=== PATIENT | female | born 1960 | race Caucasian/White ===

== ENCOUNTER 2017-01-12 09:19 | Inpatient (IN) | payer OTHER ==
[~2017-01-12] VITALS: Ht 162.6 cm; Wt 66.2 kg
[2017-01-12] MEDS ORDERED: SITA50TA3 PO (09:28)
[2017-01-12] MEDS ORDERED: METF500T4 PO (09:28)
[2017-01-12 09:58] LABS: HEMATOCRIT. 36.5 % (36.0-48.0); HEMOGLOBIN. 12.1 g/dL (12.0-16.0); LYMPHOCYTES % 15.1 % (20.0-50.0); MEAN CORPUSCULAR HEMOGLOBIN 26.3 pg (28.0-32.0); MEAN CORPUSCULAR VOLUME 79.4 fL (81.0-99.0); MEAN PLATELET VOLUME 8.8 fl (7.4-10.4); MONOCYTES % 5.7 % (2.0-8.0); NEUTROPHILS % 75.2 % (40.0-76.0); PLATELET 302 x1000/uL (130-400); RED BLOOD CELL COUNT 4.59 mill/uL (4.2-5.4); RED CELL DISTRIBUTION WIDTH 14.5 % (11.6-14.6)
[2017-01-12 10:05] LABS: PROTHROMBIN TIME 10.3 sec
[2017-01-12 10:12] LABS: CARBON DIOXIDE 26 mEq/L (21-32); CHLORIDE 104 mEq/L (98-107)
[2017-01-12 10:15] LABS: TROPONIN I < 0.02 ng/mL (0.00-0.04)
[2017-01-12] MEDS ORDERED: MORPHINE SULFATE 4 MG/ML CPJ (NOT FOR IM USE) IV ONE (11:15)
[2017-01-12] MEDS ORDERED: ONDANSETRON HCL 4MG/2ML VIAL IV ONE (11:15)
[2017-01-12] MEDS ORDERED: CLONIDINE 0.1MG TABLET PO PRN (11:30)
[2017-01-12] MEDS ORDERED: LORAZEPAM 2MG/ML CPJ IV PRN (11:30)
[2017-01-12] MEDS ORDERED: DOCUSATE SODIUM 100MG CAPSULE PO PRN (11:30)
[2017-01-12] MEDS ORDERED: IPRATROPIUM/ALBUTEROL 0.5-3(2.5)MG/3ML NEB INH PRN (11:30)
[2017-01-12] MEDS ORDERED: MAGNESIUM/ALUMINUM HYDROXIDE/SIMETHICONE 30ML UDC PO PRN (11:30)
[2017-01-12] MEDS ORDERED: ONDANSETRON HCL 4MG/2ML VIAL IV PRN (11:30)
[2017-01-12] MEDS ORDERED: GUAIFENESIN 200MG/10ML SUGAR FREE UDC PO PRN (11:30)
[2017-01-12] MEDS ORDERED: ACETAMINOPHEN 325MG TABLET PO PRN (11:30)
[2017-01-12] MEDS ORDERED: NA PHOS,M-B/NA PHOS,DI-BA ENEMA 118ML PR PRN (11:30)
[2017-01-12] MEDS ORDERED: DIPHENHYDRAMINE 50MG/ML VIAL IV PRN (11:30)
[2017-01-12 12:00] VITALS: BP 131/86
[2017-01-12] MEDS ORDERED: DEXTROSE 50% WATER 50ML SYRINGE IV PRN (12:15)
[2017-01-12 12:40] VITALS: BP 138/87
[2017-01-12] MEDS: BLOOD SUGAR DIAGNOSTIC STRIP TEST SCH ×3 (12:46→23:40)
[2017-01-12] MEDS: INSULIN LISPRO 100 UNITS/ML SUBCUT SCH ×3 (12:49→21:06)
[2017-01-12] MEDS ORDERED: HYDROMORPHONE HCL/PF 2MG/ML CPJ IV PRN (14:00)
[2017-01-12] MEDS ORDERED: ENOXAPARIN 40MG/0.4ML SYR SUBCUT SCH (14:00)
[2017-01-12] MEDS ORDERED: SITA100T6 PO (14:07)
[2017-01-12] MEDS ORDERED: ATOR10TA69 PO (14:07)
[2017-01-12] MEDS ORDERED: AMLO1CAP6 PO (14:07)
[2017-01-12] MEDS ORDERED: METF10002 PO (14:07)
[2017-01-12] MEDS: LEVOFLOXACIN 500MG PREMIX 100 ML IV SCH (14:15)
[2017-01-12 17:41] LABS: HEPATITIS B SURFACE ANTIGEN NEGATIVE
[2017-01-12 18:10] LABS: HEPATITIS B CORE AB IGM NEGATIVE
[2017-01-12] MEDS: HYDROCODONE/ACETAMINOPHEN 5/325MG TABLET PO PRN (19:08)
[2017-01-12 20:00] VITALS: BP 111/85
[2017-01-12 20:01] LABS: HEPATITIS A AB IGM NEGATIVE (NEGATIVE)
[2017-01-12] MEDS: ATORVASTATIN CALCIUM 10MG TABLET PO SCH (20:42)
[2017-01-13] VITALS: BP 106/66
[2017-01-13 04:00] VITALS: BP 121/86
[2017-01-13 06:17] LABS: EOSINOPHILS % 3.7 % (0.0-5.0); HEMATOCRIT. 35.7 % (36.0-48.0); HEMOGLOBIN. 11.8 g/dL (12.0-16.0); LYMPHOCYTES % 20.5 % (20.0-50.0); MEAN CORPUSCULAR HEMOGLOBIN 26.3 pg (28.0-32.0); MEAN CORPUSCULAR VOLUME 79.5 fL (81.0-99.0); MONOCYTES % 8.1 % (2.0-8.0); NEUTROPHILS % 66.7 % (40.0-76.0); PLATELET 294 x1000/uL (130-400); RED CELL DISTRIBUTION WIDTH 14.3 % (11.6-14.6)
[2017-01-13 06:36] LABS: CARBON DIOXIDE 27 mEq/L (21-32); CHLORIDE 105 mEq/L (98-107); HDL CHOLESTEROL 47 mg/dL (40-59); LDL CHOLESTEROL 105 mg/dL (5-100); T4 FREE 1.13 ng/dL (0.76-1.46)
[2017-01-13] MEDS: BLOOD SUGAR DIAGNOSTIC STRIP TEST SCH ×4 (06:37→21:17)
[2017-01-13 08:00] VITALS: BP 118/68
[2017-01-13] MEDS: INSULIN LISPRO 100 UNITS/ML SUBCUT SCH ×4 (08:10→21:00)
[2017-01-13] MEDS: METFORMIN HCL 500MG TABLET PO SCH (08:10)
[2017-01-13] MEDS: BENAZEPRIL 20MG TABLET PO SCH (08:32)
[2017-01-13] MEDS: AMLODIPINE 5MG TABLET PO SCH (08:33)
[2017-01-13] MEDS: LINAGLIPTIN 5MG TABLET PO SCH (08:33)
[2017-01-13] MEDS ORDERED: MEDICATION NOT ON FORMULARY EA (Sitagliptin Phosphate (Januvia) 100 MG) PO SCH (09:00)
[2017-01-13] MEDS: FUROSEMIDE 40MG/4ML VIAL IV SCH (09:00)
[2017-01-13 12:00] VITALS: BP 117/79
[2017-01-13] MEDS ORDERED: SODIUM BICARBONATE 4% (2.4MEQ) 5ML VIAL IV ONE (13:01)
[2017-01-13] MEDS: HYDROCODONE/ACETAMINOPHEN 5/325MG TABLET PO PRN ×2 (13:12→22:24)
[2017-01-13] MEDS: LEVOFLOXACIN 500MG PREMIX 100 ML IV SCH (14:53)
[2017-01-13 16:00] VITALS: BP 111/74
[2017-01-13 20:00] VITALS: BP 114/77
[2017-01-13] MEDS: ATORVASTATIN CALCIUM 10MG TABLET PO SCH (21:14)
[2017-01-14] VITALS: BP 111/62
[2017-01-14 04:00] VITALS: BP 104/60
[2017-01-14] MEDS: BLOOD SUGAR DIAGNOSTIC STRIP TEST SCH ×2 (05:54→13:18)
[2017-01-14 08:00] VITALS: BP 112/75
[2017-01-14] MEDS: AMLODIPINE 5MG TABLET PO SCH (08:45)
[2017-01-14] MEDS: METFORMIN HCL 500MG TABLET PO SCH (08:45)
[2017-01-14] MEDS: LINAGLIPTIN 5MG TABLET PO SCH (08:45)
[2017-01-14] MEDS: BENAZEPRIL 20MG TABLET PO SCH (08:45)
[2017-01-14] MEDS: INSULIN LISPRO 100 UNITS/ML SUBCUT SCH ×2 (08:48→13:10)
[2017-01-14] MEDS: FUROSEMIDE 40MG/4ML VIAL IV SCH (08:52)
[2017-01-14 10:13] VITALS: BP 112/75
[2017-01-14 10:35] VITALS: BP 111/79
[2017-01-14] MEDS: HYDROCODONE/ACETAMINOPHEN 5/325MG TABLET PO PRN (10:40)
[2017-01-14 12:00] VITALS: BP 112/75
[2017-01-14] MEDS ORDERED: LEVOFLOXACIN 500MG PREMIX 100 ML IV SCH (16:00)
[2017-01-14] MEDS ORDERED: LEVOFLOXACIN 500MG TABLET PO SCH (16:00)
== END 2017-01-14 13:40 | disposition home or self-care (01) | DRG 186 ==
LOC: ER 09:50 → 7WST 10:19 → EDBEDREQSVC 10:26 → EDBEDREQ 10:26 → ENRESERV 11:34
PROVIDERS: ADMIT Internal Medicine; ATTEND Internal Medicine
PROC: 0W993ZZ Drainage of Right Pleural Cavity, Percutaneous Approach (ICD-10-PCS; principal; 2017-01-13)
DX: J90 Pleural effusion, not elsewhere classified (principal); J96.00 Acute respiratory failure, unspecified whether with hypoxia or hypercapnia; E11.9 Type 2 diabetes mellitus without complications; I10 Essential (primary) hypertension; E78.5 Hyperlipidemia, unspecified; J45.909 Unspecified asthma, uncomplicated; Z88.0 Allergy status to penicillin; Z87.01 Personal history of pneumonia (recurrent)
CPT/HCPCS: 32555; 36415; 71010; 71250; 76700; 80053; 80061; 82040; 82945; 82962; 83615; 83880; 84157; 84439; 84443; 84484; 85025; 85379; 85610; 85730; 86705; 86709; 86803; 87070; 87205; 87340; 88108; 88312; 89050; 93005; 93306; 96374; 96375; 99285; J1650; J1815; J1956; J2270; J2405; J3490; J7040

== ENCOUNTER 2022-01-29 03:12 | Inpatient (IN) | payer MEDICARE, OTHER ==
[2022-01-29] VITALS (11 sets, daily range): BP systolic 86–157; BP diastolic 36–96
[~2022-01-29] VITALS: Ht 160 cm; Wt 70.8 kg
[~2022-01-29 03:12] MED LIST: AMLO1CAP6 PO; ATOR10TA69 PO; METF-416 PO; SITA100T11 PO
[2022-01-29] MEDS ORDERED: ASPIRIN 81MG TABLET PO ONE (03:30)
[2022-01-29 03:51] LABS: BASOPHILS % 0.4 % (0.0-2.0); EOSINOPHILS % 0.6 % (0.0-5.0); HEMATOCRIT. 28.2 % (36.0-48.0); HEMOGLOBIN. 9.1 g/dL (12.0-16.0); LYMPHOCYTES % 16.6 % (20.0-50.0); MEAN CORPUSCULAR HEMOGLOBIN 30.4 pg (28.0-32.0); MEAN CORPUSCULAR VOLUME 94.3 fL (81.0-99.0); MEAN PLATELET VOLUME 8.2 fl (7.4-10.4); MONOCYTES % 3.1 % (2.0-8.0); NEUTROPHILS % 79.3 % (40.0-76.0); PLATELET 167 x1000/uL (130-400); RED BLOOD CELL COUNT 2.99 mill/uL (4.2-5.4); RED CELL DISTRIBUTION WIDTH 18.2 % (11.6-14.6)
[2022-01-29 03:58] LABS: CHLORIDE 105 mEq/L (98-107)
[2022-01-29] MEDS ORDERED: CEFTRIAXONE 1 G PREMIX 50 ML IV NR (04:15)
[2022-01-29] MEDS ORDERED: SODIUM CHLORIDE 0.9% 1000ML BAG (SEPSIS BOLUS) IV ONE (04:15)
[2022-01-29] MEDS ORDERED: PNEUMOCOCCAL 23-VAL P-SAC VAC 0.5 ML IM ONE (04:30)
[2022-01-29] MEDS ORDERED: ENOXAPARIN 80MG/0.8ML SYR SUBCUT NR (04:30)
[2022-01-29] MEDS ORDERED: AZITHROMYCIN 500 MG in DEXT 5% WATER 250 ML IV NR (06:00)
[2022-01-29] MEDS ORDERED: ZOLPIDEM TARTRATE 5MG TABLET PO PRN (07:15)
[2022-01-29] MEDS ORDERED: DEXTROSE 50% WATER 50ML SYRINGE IV PRN (07:15)
[2022-01-29] MEDS ORDERED: ONDANSETRON HCL 4MG/2ML INJ IV PRN (07:15)
[2022-01-29] MEDS ORDERED: GUAIFENESIN 200MG/10ML SUGAR FREE UDC PO PRN (07:15)
[2022-01-29] MEDS ORDERED: TRAMADOL 50MG TABLET PO PRN ×2 (07:15→22:00)
[2022-01-29] MEDS ORDERED: NA PHOS,M-B/NA PHOS,DI-BA ENEMA 118ML PR PRN (07:15)
[2022-01-29] MEDS ORDERED: DOCUSATE SODIUM 100MG CAPSULE PO PRN (07:15)
[2022-01-29] MEDS ORDERED: KETOROLAC 15MG/ML VIAL IV PRN (07:15)
[2022-01-29] MEDS ORDERED: ACETAMINOPHEN 325MG TABLET PO PRN ×2 (07:15)
[2022-01-29] MEDS ORDERED: CLONIDINE 0.1MG TABLET PO PRN (07:15)
[2022-01-29] MEDS ORDERED: IPRATROPIUM/ALBUTEROL 0.5-3(2.5)MG/3ML NEB NEB PRN (07:15)
[2022-01-29] MEDS ORDERED: MAGNESIUM/ALUMINUM HYDROXIDE/SIMETHICONE 30ML UDC PO PRN (07:15)
[2022-01-29 07:58] LABS: *AMPHETAMINES SCREEN URINE NEGATIVE (NEGATIVE); *BARBITURATES SCREEN URINE NEGATIVE (NEGATIVE); *BENZODIAZEPINES SCREEN URINE NEGATIVE (NEGATIVE); *COCAINE SCREEN URINE NEGATIVE (NEGATIVE); CANNABINOID URINE SCREEN NEGATIVE (NEGATIVE); METHADONE URINE SCREEN NEGATIVE (NEGATIVE); OPIATES URINE SCREEN NEGATIVE (NEGATIVE); PHENCYCLIDINE URINE SCREEN NEGATIVE (NEGATIVE)
[2022-01-29 08:04] LABS: BG BASE EXCESS -5.5 mmol/L (-2.0-2.0); BG CARBOXYHEMOGLOBIN 0.3 % (0.5-1.5); BG DEOXYHEMOGLOBIN 1.9 % (0.0-5.0); BG FRACTION INSPIRED OXYGEN 80; BG HCO3 ACT 17.6 mmol/L (22.0-26.0); BG METHEMOGLOBIN 0.3 % (0.0-1.5); BG OXYGEN SATURATION 98.1 % (92.0-98.5); BG OXYHEMOGLOBIN 97.5 % (94.0-97.0); BG PCO2 25.9 mmHg (35.0-45.0); BG PO2 140.7 mmHg (75.0-100.0); BG SAMPLE SITE RIGHT RADIAL; BG TOTAL HEMOGLOBIN 8.5 g/dL (12.0-18.0); BG VENT MODE MASK - BIPAP
[2022-01-29 08:23] LABS: FOLIC ACID (FOLATE) SERUM >20 ng/mL ng/mL (>5.38); VITAMIN B12 SERUM >2000 pg/mL pg/mL (211-911)
[2022-01-29] MEDS ORDERED: VANCOMYCIN 1.25GM PMX (XELLIA) 250 ML IV SCH (09:00)
[2022-01-29] MEDS ORDERED: ENOXAPARIN 40MG/0.4ML SYR SUBCUT SCH (09:00)
[2022-01-29] MEDS: INSULIN LISPRO 100 UNITS/ML SUBCUT SCH ×4 (09:42→22:09)
[2022-01-29] MEDS: SODIUM CHLORIDE 0.9% 1,000 ML IV SCH ×2 (09:47→17:28)
[2022-01-29] MEDS: ZINC SULFATE 220 MG ( 50 ) CAPSULE PO SCH (09:48)
[2022-01-29] MEDS: ASCORBIC ACID 500 MG TABLET PO SCH ×2 (09:48→21:00)
[2022-01-29] MEDS: FAMOTIDINE 20MG TABLET PO SCH ×2 (09:48→21:00)
[2022-01-29] MEDS: CHOLECALCIFEROL (D3) 1000 UNIT TABLET PO SCH (09:48)
[2022-01-29] MEDS: GUAIFENESIN/DM 600MG/30MG ER TAB 12HR PO SCH ×2 (09:49→19:15)
[2022-01-29] MEDS: BLOOD SUGAR DIAGNOSTIC STRIP TEST SCH ×4 (09:49→21:53)
[2022-01-29] MEDS ORDERED: SODIUM BICARBONATE 8.4% 1 MEQ/ML 50ML SYR IV NR (11:00)
[2022-01-29 11:07] LABS: BG BASE EXCESS -9.7 mmol/L (-2.0-2.0); BG CARBOXYHEMOGLOBIN 0.3 % (0.5-1.5); BG DEOXYHEMOGLOBIN 2.1 % (0.0-5.0); BG FRACTION INSPIRED OXYGEN 100; BG HCO3 ACT 14.5 mmol/L (22.0-26.0); BG METHEMOGLOBIN 0.2 % (0.0-1.5); BG OXYGEN SATURATION 97.9 % (92.0-98.5); BG OXYHEMOGLOBIN 97.4 % (94.0-97.0); BG PCO2 26.7 mmHg (35.0-45.0); BG PH 7.354 (7.350-7.450); BG PO2 140.1 mmHg (75.0-100.0); BG SAMPLE SITE RIGHT RADIAL; BG TOTAL HEMOGLOBIN 10.2 g/dL (12.0-18.0); BG VENT MODE MASK - BIPAP
[2022-01-29] MEDS: IPRATROPIUM/ALBUTEROL 0.5-3(2.5)MG/3ML NEB HHN SCH ×3 (11:38→20:23)
[2022-01-29] MEDS: INSULIN GLARGINE 100 UNITS/ML SUBCUT SCH (12:54)
[2022-01-29] MEDS ORDERED: MORPHINE SULFATE 2 MG/ML CPJ (NOT FOR IM USE) IV NR (13:45)
[2022-01-29] MEDS: METHYLPREDNISOLONE SOD SUCC 125 MG/2 ML VIAL IV SCH ×2 (14:01→23:19)
[2022-01-29] MEDS ORDERED: NALOXONE HCL 0.4MG/ML VIAL IV PRN ×2 (15:45→22:00)
[2022-01-29 17:23] LABS: CREATINE KINASE MB FRACTION 2.2 ng/mL (0.5-3.6)
[2022-01-29] MEDS: MEROPENEM 1,000 MG in SODIUM CHLORIDE 0.9% 100 ML IV SCH (17:28)
[2022-01-29] MEDS: MORPHINE SULFATE 2 MG/ML CPJ (NOT FOR IM USE) IV PRN ×2 (17:54→20:25)
[2022-01-29] MEDS: VANCOMYCIN 750MG PREMIX 150 ML IV SCH (21:41)
[2022-01-30] VITALS (14 sets, daily range): BP systolic 81–143; BP diastolic 27–77
[2022-01-30] MEDS: IPRATROPIUM/ALBUTEROL 0.5-3(2.5)MG/3ML NEB HHN SCH ×5 (00:18→16:48)
[2022-01-30 00:27] LABS: CREATINE KINASE MB FRACTION 2.5 ng/mL (0.5-3.6)
[2022-01-30] MEDS: MEROPENEM 1,000 MG in SODIUM CHLORIDE 0.9% 100 ML IV SCH ×2 (02:27→09:22)
[2022-01-30] MEDS: SODIUM CHLORIDE 0.9% 1,000 ML IV SCH ×3 (03:15→12:44)
[2022-01-30] MEDS: MORPHINE SULFATE 2 MG/ML CPJ (NOT FOR IM USE) IV PRN ×3 (04:28→14:59)
[2022-01-30] MEDS: METHYLPREDNISOLONE SOD SUCC 125 MG/2 ML VIAL IV SCH ×2 (05:28→14:00)
[2022-01-30 06:16] LABS: CHLORIDE 103 mEq/L (98-107)
[2022-01-30 06:28] LABS: HEMATOCRIT. 24.1 % (36.0-48.0); HEMOGLOBIN. 8.1 g/dL (12.0-16.0); MEAN CORPUSCULAR HEMOGLOBIN 31.1 pg (28.0-32.0); MEAN CORPUSCULAR VOLUME 92.4 fL (81.0-99.0); MEAN PLATELET VOLUME 8.6 fl (7.4-10.4); PHOSPHORUS 4.1 mg/dL (2.5-4.9); PLATELET 142 x1000/uL (130-400); RED BLOOD CELL COUNT 2.61 mill/uL (4.2-5.4); RED CELL DISTRIBUTION WIDTH 17.5 % (11.6-14.6)
[2022-01-30] MEDS: GUAIFENESIN/DM 600MG/30MG ER TAB 12HR PO SCH (07:15)
[2022-01-30] MEDS: BLOOD SUGAR DIAGNOSTIC STRIP TEST SCH ×2 (07:30→11:51)
[2022-01-30 07:37] LABS: PLATELET ESTIMATE NORMAL
[2022-01-30] MEDS: INSULIN LISPRO 100 UNITS/ML SUBCUT SCH ×3 (08:00→11:51)
[2022-01-30] MEDS: ZINC SULFATE 220 MG ( 50 ) CAPSULE PO SCH (08:23)
[2022-01-30] MEDS: ASCORBIC ACID 500 MG TABLET PO SCH (08:23)
[2022-01-30] MEDS: CHOLECALCIFEROL (D3) 1000 UNIT TABLET PO SCH (08:23)
[2022-01-30] MEDS: FAMOTIDINE 20MG TABLET PO SCH (08:23)
[2022-01-30] MEDS ORDERED: ENOXAPARIN 40MG/0.4ML SYR SUBCUT SCH (09:00)
[2022-01-30] MEDS: VANCOMYCIN 750MG PREMIX 150 ML IV SCH (09:21)
[2022-01-30] MEDS: INSULIN GLARGINE 100 UNITS/ML SUBCUT SCH ×2 (09:30→10:00)
[2022-01-30] MEDS ORDERED: MEGE400O5 PO (09:37)
[2022-01-30] MEDS ORDERED: INSU100I24 SQ (09:38)
[2022-01-30] MEDS ORDERED: [UNRECOGNIZED DRUG - CODE] PO (09:41)
[2022-01-30] MEDS ORDERED: HYDR5TAB13 PO ×2 (09:48)
[2022-01-30] MEDS ORDERED: FOLI-43 PO (09:49)
[2022-01-30] MEDS ORDERED: OMEP20TA23 PO (09:50)
[2022-01-30] MEDS ORDERED: INSASP SUBCUT (09:51)
[2022-01-30] MEDS ORDERED: ZOLP5TAB2 PO (09:52)
[2022-01-30] MEDS ORDERED: LOMOTIL PO (09:54)
[2022-01-30] MEDS ORDERED: LOPE2CAP PO (09:55)
[2022-01-30] MEDS ORDERED: MORPHINE SULFATE 250 MG in DEXT 5% WATER 225 ML IV PRN ×2 (10:15→19:50)
[2022-01-30] MEDS ORDERED: SCOPOLAMINE HYDROBROMIDE PATCH 72HR TD SCH (11:00)
[2022-01-31] VITALS (8 sets, daily range): BP systolic 57–109; BP diastolic 44–73
== END 2022-02-01 00:30 | DRG 189 ==
LOC: ER 03:12 → 5EST 05:00 → SUPCPDRO 07:08 → ENRESERV 11:00
PROVIDERS: ADMIT Internal Medicine; ATTEND Internal Medicine
PROC: 5A09457 Assistance with Respiratory Ventilation, 24-96 Consecutive Hours, Continuous Positive Airway Pressure (ICD-10-PCS; principal; 2022-01-29)
PROC: 5A0935A Assistance with Respiratory Ventilation, Less than 24 Consecutive Hours, High Flow/Velocity Cannula (ICD-10-PCS; 2022-01-31)
DX: J96.21 Acute and chronic respiratory failure with hypoxia (principal); J18.9 Pneumonia, unspecified organism; J44.1 Chronic obstructive pulmonary disease with (acute) exacerbation; E44.1 Mild protein-calorie malnutrition; C34.90 Malignant neoplasm of unspecified part of unspecified bronchus or lung; C79.31 Secondary malignant neoplasm of brain; J90 Pleural effusion, not elsewhere classified; D63.8 Anemia in other chronic diseases classified elsewhere; E11.9 Type 2 diabetes mellitus without complications; I10 Essential (primary) hypertension; Z20.822 Contact with and (suspected) exposure to COVID-19; E78.5 Hyperlipidemia, unspecified; E78.00 Pure hypercholesterolemia, unspecified; Z85.118 Personal history of other malignant neoplasm of bronchus and lung; Z68.27 Body mass index [BMI] 27.0-27.9, adult; Z66 Do not resuscitate; Z79.4 Long term (current) use of insulin; Z88.0 Allergy status to penicillin; Z51.5 Encounter for palliative care
CPT/HCPCS: 36415; 36600; 71045; 80053; 80061; 80305; 82375; 82550; 82553; 82607; 82746; 82805; 82962; 83036; 83540; 83550; 83605; 83735; 83880; 84100; 84145; 84443; 84484; 85025; 85379; 87426; 87804; 93005; 93306; 93970; 94640; 94660; 99291; C9803; J0456; J0696; J1650; J1815; J2185; J2270; J2405; J2930; J3370; J3490; J7050; J7060